=== PATIENT | female | born 1995 | race Caucasian/White ===

== ENCOUNTER → 2020-08-23 | Outpatient (CLI) | payer OTHER | LOC: M LABSMTC 08:47 | PROVIDERS: ATTEND Physical Medicine & Rehabilitation | DX: Z01.812 Encounter for preprocedural laboratory examination (principal); Z20.828 Contact with and (suspected) exposure to other viral communicable diseases ==

== ENCOUNTER → 2021-01-20 | Outpatient (CLI) | payer OTHER ==
[2021-01-20 14:20] LABS: HCG, SERUM QUALITATIVE NEGATIVE (NEGATIVE)
== END ==
LOC: M LAB 13:07
PROVIDERS: ATTEND Physician Assistant
DX: M47.817 Spondylosis without myelopathy or radiculopathy, lumbosacral region (principal)

== ENCOUNTER → 2021-03-11 | Outpatient (CLI) | payer OTHER ==
[2021-03-11 15:59] LABS: PLATELET COUNT, AUTOMATED 214 10^3/uL (150-450)
[2021-03-11 16:17] LABS: HCG, SERUM QUALITATIVE NEGATIVE (NEGATIVE)
== END ==
LOC: M LAB 15:00
PROVIDERS: ATTEND Physician Assistant Surgical
DX: M47.816 Spondylosis without myelopathy or radiculopathy, lumbar region (principal)

== ENCOUNTER 2022-08-09 18:30 | Emergency (ER) | payer OTHER ==
[~2022-08-09] VITALS: Ht 165.1 cm; Wt 117.8 kg
[2022-08-09] MEDS ORDERED: EPIN0.3I11 (18:57)
[2022-08-09] MEDS ORDERED: ONDA-83 (18:57)
[2022-08-09] MEDS ORDERED: OMEP40CA5 (18:57)
[2022-08-09] MEDS ORDERED: B-12100010 PO (18:57)
[2022-08-09] MEDS ORDERED: VITMTA PO (18:57)
[2022-08-09 21:12] LABS: BASO % 0.4 % (0.0-1.0); EOS # 0.1 10^3/uL (0.0-0.5); HEMATOCRIT 41.6 % (36.0-47.0); HEMOGLOBIN 13.8 g/dl (12.0-15.5); LYMPH # 1.5 10^3/uL (1.5-5.0); LYMPH % 33.3 % (24.0-44.0); MEAN CORPUSCULAR HEMOGLOBIN 27.7 pg (27.0-33.0); MEAN CORPUSCULAR HGB CONC 33.2 g/dl (32.0-36.5); MEAN CORPUSCULAR VOLUME 83.4 fl (80.0-96.0); MONO # 0.4 10^3/uL (0.0-0.8); MONO % 9.6 % (2.0-8.0); NEUTROPHILS # 2.4 10^3/uL (1.5-8.5); NEUTROPHILS % 54.5 % (36.0-66.0); PLATELET COUNT, AUTOMATED 254 10^3/uL (150-450); RED BLOOD COUNT 4.99 10^6/uL (4.00-5.40); WHITE BLOOD COUNT 4.5 10^3/uL (4.0-10.0)
[2022-08-09 21:43] LABS: ALT/SGPT 29 U/L (7.0-40); BILIRUBIN,DIRECT 0.2 MG/DL (<0.4); BILIRUBIN,TOTAL 0.6 MG/DL (0.3-1.2); BLOOD UREA NITROGEN 7 MG/DL (9-23); CALCIUM LEVEL 9.3 MG/DL (8.5-10.1); CARBON DIOXIDE LEVEL 25 MMOL/L (20-31); CHLORIDE LEVEL 104 MMOL/L (98-107); GLOMERULAR FILTRATION RATE > 60.0 (>60); GLUCOSE, FASTING 86 MG/DL (60-100); LIPASE 35 U/L (12-53); POTASSIUM SERUM 3.7 MMOL/L (3.5-5.1); SODIUM LEVEL 141 MMOL/L (136-145); TOTAL PROTEIN 6.6 G/DL
[2022-08-09] MEDS ORDERED: PROMETHAZINE 25 MG TAB PO ONE (23:15)
[2022-08-09] MEDS ORDERED: NS 1,000 ML IV ONE (23:15)
[2022-08-09 23:21] LABS: HCG, SERUM QUALITATIVE NEGATIVE (NEGATIVE)
[2022-08-09] MEDS: GASTROGRAFIN SOLUTION 30ML PO SCH (23:50)
[2022-08-09 23:53] LABS: RSV AMPLIFICATION NEGATIVE (NEGATIVE)
[2022-08-10] MEDS: GASTROGRAFIN SOLUTION 30ML PO SCH (00:20)
[2022-08-10] MEDS ORDERED: ISOVUE-370 76% 100ML VIAL As Ordered ONE (00:27)
[2022-08-10] MEDS ORDERED: CIPR-249 PO (02:08)
[2022-08-10] MEDS ORDERED: PROM25TA12 PO (02:08)
[2022-08-10 02:24] VITALS: BP 126/80
[2022-08-10] MEDS ORDERED: CIPROFLOXACIN 500MG TABLET PO ONE (03:00)
== END 2022-08-10 02:26 | disposition home or self-care (01) ==
LOC: M ED 18:30
DX: K52.9 Noninfective gastroenteritis and colitis, unspecified (principal); Z98.84 Bariatric surgery status; Z88.0 Allergy status to penicillin; Z91.030 Bee allergy status